=== PATIENT | male | born 1960 | race Caucasian/White ===

== ENCOUNTER 2021-04-19 18:05 | Inpatient (IN) | payer OTHER ==
[~2021-04-19] VITALS: Ht 175.3 cm; Wt 113.4 kg
[~2021-04-19 18:05] MED LIST: ACTOS30 MG PO; ALDACTONE 25MG25 MG PO; ALDACTONE25 MG PO; ASPIR 8181 MG PO; BENTYL 20MG TAB20 MG PO; CARVEDILOL3.125 MG PO; CIPRO500 MG PO; DIABETA 5 MG TAB5 MG PO; ENTRESTO 24 MG1 EACH PO; FLAGYL500 MG PO; FLORANEX GRANU1 EACH PO; FUROSEMIDE40 MG PO; HYDROCHLOROTHIA25 MG PO; JANUMET XR 1001 EACH PO; JANUVIA100 MG PO; KEFLEX CAP 500500 MG PO; LASIX40 MG PO; LEVAQUIN500 MG PO; LISINOPRIL20 MG PO; LOPID TAB 600600 MG PO; LOVASTATIN40 MG PO; METFORMIN HCL1000 M1 PO; NORCO 7.5-3251 EACH PO; NORVASC 5 MG TAB5 MG PO; NORVASC10 MG PO; OMEGA 3-6-9 11200 MG PO; PERCOCET 5/325 T1 EA PO; PRINIVIL20 MG PO; THERAGRAN M TAB1 EA PO; VOLTAREN EC 2525 MG PO; VOLTAREN EC 7575 MG PO; VOLTAREN100 GM TP; ZOFRAN ODT 4 MG4 MG SL; ZOFRAN ODT4 MG PO
[2021-04-19 19:09] LABS: HEMOGLOBIN 14.7 gm/dl (14.0-17.5); RED BLOOD COUNT 4.67 M/UL (4.20-5.50); WHITE BLOOD COUNT 9.8 K/UL (4.5-11.0)
[2021-04-19] MEDS ORDERED: DIOVAN320 MG PO (23:07)
[2021-04-19] MEDS ORDERED: HYDROCHLOROTHIA25 MG PO (23:07)
[2021-04-19] MEDS ORDERED: HYDRALAZINE HCL25 MG PO (23:07)
[2021-04-19] MEDS ORDERED: CATAPRES 0.1MG0.1 MG PO (23:08)
[2021-04-19] MEDS ORDERED: NIFEDIPINE ER30 MG PO (23:08)
[2021-04-19] MEDS ORDERED: COREG 25MG TAB25 MG PO (23:08)
[2021-04-19] MEDS ORDERED: HUMULIN R100 UNIT/1 SQ (23:10)
[2021-04-19] MEDS ORDERED: LANTUS100 UNIT/1 SQ (23:10)
[2021-04-21 06:26] LABS: HEMOGLOBIN 13.6 gm/dl (14.0-17.5); RED BLOOD COUNT 4.38 M/UL (4.20-5.50); WHITE BLOOD COUNT 7.6 K/UL (4.5-11.0)
[2021-04-22 06:07] LABS: BUN/CREATININE RATIO 20 (0-10)
[2021-04-22 08:54] LABS: HEMOGLOBIN 12.7 gm/dl (14.0-17.5); RED BLOOD COUNT 4.09 M/UL (4.20-5.50); WHITE BLOOD COUNT 6.9 K/UL (4.5-11.0)
[2021-04-22] MEDS ORDERED: CARVEDILOL12.5 MG PO (17:51)
[2021-04-23 10:14] LABS: CREATININE, URINE 45.1 mg/dL (Not Estab.)
== END 2021-04-22 19:20 | disposition home or self-care (01) | DRG 683 ==
LOC: ER1 18:05 → CDU 20:20 → MED SURG 4 21:54
PROVIDERS: Internal Medicine; ADMIT Internal Medicine
DX: N17.9 Acute kidney failure, unspecified (principal); I42.9 Cardiomyopathy, unspecified; E87.2 Acidosis; E86.0 Dehydration; E11.9 Type 2 diabetes mellitus without complications; F17.210 Nicotine dependence, cigarettes, uncomplicated; I11.0 Hypertensive heart disease with heart failure; Z20.822 Contact with and (suspected) exposure to COVID-19; I50.9 Heart failure, unspecified; E87.6 Hypokalemia; I25.10 Atherosclerotic heart disease of native coronary artery without angina pectoris; E78.5 Hyperlipidemia, unspecified; R80.9 Proteinuria, unspecified; Z82.49 Family history of ischemic heart disease and other diseases of the circulatory system; Z90.89 Acquired absence of other organs; Z98.890 Other specified postprocedural states; X30.XXXA Exposure to excessive natural heat, initial encounter
CPT/HCPCS: 0240U; 36415; 80048; 80053; 80076; 81001; 82043; 82550; 82570; 82803; 82962; 83690; 84156; 84300; 85025; 89050; 99284; J1644; J7030

== ENCOUNTER → 2022-01-25 | Outpatient (CLI) | payer OTHER ==
[~2022-01-25] MED LIST changes: +CARVEDILOL12.5 MG PO; +CATAPRES 0.1MG0.1 MG PO; +COREG 25MG TAB25 MG PO; +DIOVAN320 MG PO; +HUMULIN R100 UNIT/1 SQ; +HYDRALAZINE HCL25 MG PO; +LANTUS100 UNIT/1 SQ; +NIFEDIPINE ER30 MG PO
[2022-01-25 10:00] LABS: HEMOGLOBIN 15.9 gm/dl (14.0-17.5); RED BLOOD COUNT 5.14 M/UL (4.20-5.50)
[2022-01-25 10:27] LABS: BUN/CREATININE RATIO 22 (0-10)
== END ==
LOC: LAB 09:27
PROVIDERS: Family Medicine
DX: Z12.5 Encounter for screening for malignant neoplasm of prostate (principal); Z13.0 Encounter for screening for diseases of the blood and blood-forming organs and certain disorders involving the immune mechanism; Z13.29 Encounter for screening for other suspected endocrine disorder; E78.5 Hyperlipidemia, unspecified; E11.9 Type 2 diabetes mellitus without complications
CPT/HCPCS: 36415; 80053; 80061; 82043; 83036; 84153; 84439; 84443; 85027